=== PATIENT | female | born 1985 | race Caucasian/White ===

== ENCOUNTER 2018-12-22 23:10 | Emergency (ER) | payer BC ==
[2018-12-22] MEDS ORDERED: Sodium Chloride 0.9% 1,000 ML IV ONE (23:29)
--- NOTE | 2018-12-22 23:35 | EDM.PDOC ---
ED HPI GENERAL MEDICAL PROBLEM - General Chief Complaint: Flank Pain Stated Complaint: LEFT FLANK PAIN Time Seen by Provider: 12/22/18 23:18 Source of Information: Reports: Patient, Significant Other History Limitations: Reports: No Limitations - History of Present Illness INITIAL COMMENTS - FREE TEXT/NARRATIVE: Patient presents with left flank pain that started about 7 hours ago. She rates it 7/10 currently. She says she has had pain in the left flank a few times in the last two months but not as bad as tonight. She has some nausea and didn't have an appetite at supper tonight. She hasn't noticed any hematuria. She has had UTI's in the past but not in last 5 years. With those she had dysuria but not now. Denies any history of kidney stones. Only abdominal surgery was a . She is currently nursing. Left Flank Pain Score (Numeric/FACES): 7 - Related Data Allergies Allergy/AdvReac Type Severity Reaction Status Date / Time No Known Drug Allergies Allergy Other Verified 12/22/18 23:15 Home Meds: Home Meds . [No Known Home Meds] 12/22/18 [History] ED ROS GENERAL - Review of Systems Review Of Systems: See Below Constitutional: Reports: Decreased Appetite. Denies: Fever, Weakness HEENT: Denies: Ear Pain, Throat Pain Respiratory: Denies: Shortness of Breath Cardiovascular: Denies: Chest Pain, Syncope Endocrine: Reports: No Symptoms GI/Abdominal: Reports: Abdominal Pain, Nausea. Denies: Constipation, Diarrhea, Vomiting : Reports: Flank Pain. Denies: Dysuria, Hematuria Musculoskeletal: Reports: No Symptoms Skin: Denies: Cyanosis, Jaundice, Mottled, Pallor, Diaphoresis Neurological: Denies: Confusion, Headache, Seizure, Syncope, Trouble Speaking, Gait Disturbance Psychiatric: Denies: Agitation, Anxiety, Confusion ED EXAM, RENAL/ - Physical Exam Exam: See Below Exam Limited By: No Limitations General Appearance: Alert, WD/WN, No Apparent Distress Eye Exam: Bilateral Eye: EOMI, Normal Inspection, PERRL Ears: Normal External Exam, Hearing Grossly Normal Nose: Normal Inspection, No Blood Throat/Mouth: Normal Inspection, Normal Lips, Normal Voice, No Airway Compromise Head: Atraumatic, Normocephalic Neck: Normal Inspection, Full Range of Motion Respiratory/Chest: No Respiratory Distress, Lungs Clear, Normal Breath Sounds, No Accessory Muscle Use Cardiovascular: No Murmur, Tachycardia (slight; regular) GI/Abdominal: Soft, No Organomegaly, No Distention, No Abnormal Bruit, Tender ( LUQ). No: Distended, Guarding, Rigid Back Exam: Normal Inspection, Full Range of Motion, CVA Tenderness (L). No: CVA Tenderness (R) Extremities: Normal Inspection, Normal Range of Motion, No Pedal Edema Neurological: Alert, Oriented, Normal Cognition, No Motor/Sensory Deficits Psychiatric: Normal Affect, Normal Mood Skin Exam: Warm, Dry, Intact, Normal Color, No Rash Course - Vital Signs Last Recorded V/S: Last Vital Signs Temp 97.2 F 12/22/18 23:11 Pulse 103 H 12/22/18 23:11 Resp 16 12/22/18 23:11 BP 105/73 12/22/18 23:11 Pulse Ox 100 12/22/18 23:11 - Orders/Labs/Meds Labs: Laboratory Tests 12/22/18 12/22/18 12/22/18 Range/Units 23:30 23:30 23:52 WBC 10.87 H (5.00-10.00) 10^3/uL RBC 4.65 (3.80-5.50) 10^6/uL Hgb 14.6 (12.0-16.0) g/dL Hct 41.4 (37.0-47.0) % MCV 89.0 (82.0-92.0) fL MCH 31.4 H (27.0-31.0) pg MCHC 35.3 (32.0-36.0) g/dL RDW 12.3 (11.5-14.5) % Plt Count 270 (150-400) 10^3/uL MPV 9.4 (7.4-10.4) fL Immature Gran % (Auto) 0.1 (0.0-5.0) % Neut % (Auto) 70.9 H (50.0-70.0) % Lymph % (Auto) 19.1 L (20.0-40.0) % [place] % (Auto) 7.9 (2.0-8.0) % Eos % (Auto) 1.9 (1.0-3.0) % Baso % (Auto) 0.1 (0.0-1.0) % Immature Gran # (Auto) 0.01 (0.00-0.50) 10^3/uL Neut # (Auto) 7.70 H (2.50-7.00) 10^3/uL Lymph # (Auto) 2.08 (1.00-4.00) 10^3/uL [place]rentiss # (Auto) 0.86 H (0.10-0.80) 10^3/uL Eos # (Auto) 0.21 (0.10-0.30) 10^3/uL Baso # (Auto) 0.01 (0.00-0.10) 10^3/uL Sodium 142 (136-145) mmol/L Potassium 4.0 (3.3-5.3) mmol/L Chloride 106 (98-115) mmol/L Carbon Dioxide 26.1 (21.0-32.0) mmol/L Anion Gap 13.9 (5-15) mmol/L BUN 13 (6-25) mg/dL Creatinine 0.74 (0.51-1.17) mg/dL Est Cr Clr Drug Dosing 90.71 mL/min Estimated GFR (MDRD) > 60 mL/min Glucose 96 (75 - 99) mg/dL Calcium 8.8 (8.7-10.3) mg/dL Total Bilirubin 0.2 (0.2-1.0) mg/dL AST 16 (15-37) U/L ALT 20 (12-78) U/L Alkaline Phosphatase 97 (46-116) IU/L Total Protein 7.4 (6.4-8.2) g/dL Albumin 3.71 (3.00-4.80) g/dL Specimen Type Urincc Urine Color Yellow (YELLOW) Urine Appearance Clear (CLEAR) Urine pH 7.0 (5.0-9.0) Ur Specific [place] 1.015 (1.005-1.030) Urine Protein 30 H (NEGATIVE) mg/dL Urine Glucose (UA) Negative (NEGATIVE) mg/dL Urine Ketones Negative (NEGATIVE) mg/dL Urine Occult Blood Moderate H (NEGATIVE) Urine Nitrite Negative (NEGATIVE) Urine Bilirubin Negative (NEGATIVE) Urine Urobilinogen 0.2 (0.2-1.0) E.U./dL Ur Leukocyte Esterase Small H (NEGATIVE) Urine RBC 30-40 H (0-5) /HPF Urine WBC 10-20 H (0-5) /HPF Ur Epithelial Cells Moderate H /LPF Urine Bacteria Not seen (NONE TO FEW) /HPF Urine Mucus Few H (NEGATIVE) /LPF Meds: Medications Discontinued Medications Generic Name Dose Route Start Last Admin Trade Name Roberth PRN Reason Stop Dose Admin Sodium Chloride 1,000 mls @ 999 mls/hr 12/22/18 23:29 12/22/18 23:39 Normal Saline IV 12/23/18 00:29 999 mls/hr .BOLUS ONE Administration Lactated Ringer's Confirm 12/23/18 01:49 Ringers, Lactated Administered 12/23/18 01:50 Dose 1,000 mls @ as directed .ROUTE .STK-MED ONE Trimethoprim/Sulfamethoxazole 1 tab 12/23/18 01:56 Septra Ds PO 12/23/18 01:57 ONETIME ONE - Re-Assessments/Exams Free Text/Narrative Re-Assessment/Exam: 12/23/18 00:43 A liter of fluids is in. Pain is down from 7 to 5; she still doesn't want anything for pain. Slight neutrophilia and hematuria. No significant evidence of UTI. Will get CT. Considered CT with contrast to get better look at kidneys but it would be a significant problem for patient since she is strictly nursing and would have to wait 12-24 hours with contrast. 12/23/18 02:00 CT shows urothelial thickening, distended bladder and mild constipation. No calculi. Without contrast pyelonephritis is not definitively ruled in or out but we will treat for a presumed UTI and patient will follow up early if not improving. Discussed findings and treatment plan with patient and her . Will treat with Bactrim DS since she is nursing. The first dose given in ER. Patient discharged to home in stable condition. Departure - Departure Time of Disposition: 01:57 Disposition: Home, Self-Care 01 Condition: Good Clinical Impression: UTI (urinary tract infection) Qualifiers: Hematuria presence: with hematuria - Discharge Information Instructions: Urinary Tract Infection, Adult Forms: ED Department Discharge Additional Instructions: 1. Drink 8 cups of water daily. 2. Take the Bactrim DS as directed. 3. Follow up with a doctor in 1-2 days if not improving or if worsening.
[2018-12-23 00:04] LABS: ANION GAP 13.9 mmol/L (5-15); CHLORIDE,CL 106 mmol/L (98-115); SODIUM,NA 142 mmol/L (136-145)
[2018-12-23] MEDS ORDERED: Lactated Ringers 1,000 ML ONE (01:49)
[2018-12-23] MEDS ORDERED: Sulfamethoxazole/Trimethoprim 800-160 MG Tab PO ONE (01:56)
--- NOTE | 2018-12-23 07:50 | CT ---
[id number] CT/CT Abdomen Pelvis WO IV Exam: CT Abdomen Pelvis WO IV Clinical Data: LEFT FLANK PAIN. MICROSCOPIC HEMATURIA. COMPARISON: NO PREVIOUS SIMILAR EXAM IS AVAILABLE FINDINGS: There is no obvious hydronephrosis. There is no obvious radiopaque calcification of either kidney or ureter. The liver and spleen, adrenals, aorta, and pancreas show no acute abnormalities. The gallbladder is not distended. There is abundant fecal matter in the colon. The appendix is not well seen. There is no evidence of appendicitis. The pelvis shows no mass or adenopathy IMPRESSION: NO HYDRONEPHROSIS. NO RADIOPAQUE CALCIFICATION OF EITHER KIDNEY OR URETER. CONSIDER FURTHER STUDIES IF NEEDED. Steve Le MD 12/23/18 0749 Thank you for allowing us to participate in the care of your patient.
== END 2018-12-23 02:25 | disposition home or self-care (01) ==
LOC: KA.ED 23:10
DX: N39.0 Urinary tract infection, site not specified (principal); R31.9 Hematuria, unspecified
CPT/HCPCS: 51798; 74176; 80053; 81001; 85025; 96360; 96361; 99284; A9270; J7030

== ENCOUNTER 2022-11-12 16:50 | Emergency (ER) | payer BC ==
[2022-11-12] MEDS ORDERED: Sodium Chloride 0.9% 10 ML Syringe FLUSH PRN (17:28)
[2022-11-12 18:10] LABS: ANION GAP 12.4 mmol/L (5-15)
[2022-11-12] MEDS: Iopamidol 755 Mg/ML 75 ML Bottle IVPUSH ONE (18:25)
[2022-11-12] MEDS: Sodium Chloride 0.9% 50 ML IV SCH (18:25)
[2022-11-12] MEDS: Sodium Chloride 0.9% 1,000 ML IV ONE (18:45)
[2022-11-12] MEDS: Simethicone 80 MG Tab.Chew PO ONE (18:55)
[2022-11-12] MEDS: Simethicone 80 MG Tab.Chew PO PRN (19:10)
[2022-11-12 19:43] VITALS: BP 110/72; PULSE 67
== END 2022-11-12 19:15 | disposition home or self-care (01) ==
LOC: KA.ED 16:50
DX: R10.31 Right lower quadrant pain (principal); Z88.5 Allergy status to narcotic agent
CPT/HCPCS: 74177; 80053; 81001; 81025; 85025; 99284; A9270-GY; J7030; Q9967

== ENCOUNTER 2024-01-25 21:25 | Emergency (ER) | payer BC ==
[2024-01-25 21:52] LABS: APPEARANCE,URINE CLOUDY (CLEAR); BILIRUBIN,URINE NEGATIVE (NEGATIVE); COLOR,URINE LIGHT YELLOW (YELLOW); GLUCOSE,URINE NEGATIVE (NEGATIVE); KETONES,URINE NEGATIVE (NEGATIVE); LEUKOCYTE ESTERASE,URINE MODERATE (NEGATIVE); NITRITE,URINE NEGATIVE (NEGATIVE); OCCULT BLOOD,URINE TRACE-INTACT (NEGATIVE); PROTEIN,URINE NEGATIVE (NEGATIVE); UROBILINOGEN,URINE 0.2 E.U./dL (0.2-1.0)
[2024-01-25 21:59] LABS: BACTERIA,URINE FEW /HPF (NONE TO FEW); EPITHELIAL CELLS,URINE RARE /LPF; WBC,URINE 40-50 /HPF (0-5)
[2024-01-25] MEDS: Nitrofurantoin Monohydrate/Macrocrystalline 100 MG Cap PO ONE (22:48)
[2024-01-25] MEDS: Phenazopyridine 100 MG Tab PO SCH (22:49)
== END 2024-01-25 23:00 | disposition home or self-care (01) ==
LOC: KA.ED 21:25
DX: O23.42 Unspecified infection of urinary tract in pregnancy, second trimester (principal); N39.0 Urinary tract infection, site not specified; Z88.5 Allergy status to narcotic agent; Z3A.28 28 weeks gestation of pregnancy; Z79.899 Other long term (current) drug therapy
CPT/HCPCS: 81001; 87086; 99283; 99284; A9270-GY